=== PATIENT | female | born 1980 | race African-American/Black ===

== ENCOUNTER 2019-07-15 05:35 | Emergency (ER) | payer MEDICAID ==
[~2019-07-15] VITALS: Ht 165.1 cm; Wt 77.0 kg
[2019-07-15] MEDS ORDERED: ACETAMINOPHEN 325MG TABLET PO STA (07:15)
[2019-07-17 09:58] VITALS: BP 101/69
== END 2019-07-17 10:24 | disposition home or self-care (01) ==
LOC: ER 05:35
DX: M79.643 Pain in unspecified hand (principal); R51 Headache; J45.909 Unspecified asthma, uncomplicated; F31.9 Bipolar disorder, unspecified; I10 Essential (primary) hypertension; G82.20 Paraplegia, unspecified; Z59.0 Homelessness; Z77.098 Contact with and (suspected) exposure to other hazardous, chiefly nonmedicinal, chemicals
CPT/HCPCS: 99283

== ENCOUNTER 2020-09-11 06:31 | Emergency (ER) | payer MEDICAID ==
[~2020-09-11] VITALS: Ht 165.1 cm; Wt 73.0 kg
[2020-09-11 10:28] VITALS: BP 131/62
== END 2020-09-11 10:25 | disposition home or self-care (01) ==
LOC: ER 06:31
DX: R07.89 Other chest pain (principal); T74.21XA Adult sexual abuse, confirmed, initial encounter; Y04.8XXA Assault by other bodily force, initial encounter; Y93.89 Activity, other specified; Y92.89 Other specified places as the place of occurrence of the external cause
CPT/HCPCS: 71045; 99283